=== PATIENT | female | born 1990 | race Native Hawaiian/Other Pacific Islander ===

== ENCOUNTER 2018-07-30 17:42 | Emergency (ER) | payer OTHER ==
[~2018-07-30] VITALS: Ht 160 cm; Wt 90.3 kg
[2018-07-30 18:46] LABS: PLATELET COUNT 217 K/uL (152-353)
[2018-07-30 18:56] LABS: POTASSIUM 3.8 mmol/L (3.6-5.2)
[2018-07-30 21:56] VITALS: BP 104/64; TEMP 98.9
== END 2018-07-30 21:57 | disposition home or self-care (01) ==
LOC: ED 17:42
PROVIDERS: Emergency Medicine
DX: R10.31 Right lower quadrant pain (principal); D72.829 Elevated white blood cell count, unspecified; K59.00 Constipation, unspecified
CPT/HCPCS: 36415; 74022; 80053; 81000; 81025; 85027; 96374; 99284; J1885

== ENCOUNTER 2019-09-17 15:13 | Emergency (ER) | payer OTHER ==
[~2019-09-17] VITALS: Ht 160 cm; Wt 90.3 kg
[2019-09-17 15:25] VITALS: TEMP 98.5
[2019-09-17 16:43] LABS: PLATELET COUNT 235 K/uL (152-353)
[2019-09-17 16:45] LABS: POTASSIUM 3.7 mmol/L (3.6-5.2)
[2019-09-17 18:55] VITALS: BP 130/68
== END 2019-09-17 18:55 | disposition home or self-care (01) ==
LOC: ED 15:13
PROVIDERS: Family Medicine
DX: S20.212A Contusion of left front wall of thorax, initial encounter (principal); S20.211A Contusion of right front wall of thorax, initial encounter; S29.012A Strain of muscle and tendon of back wall of thorax, initial encounter; S70.312A Abrasion, left thigh, initial encounter; S70.311A Abrasion, right thigh, initial encounter; V49.40XA Driver injured in collision with unspecified motor vehicles in traffic accident, initial encounter; Y92.89 Other specified places as the place of occurrence of the external cause
CPT/HCPCS: 80053; 81025; 85027; 99283; Q9963

== ENCOUNTER 2019-10-13 18:20 | Emergency (ER) | payer OTHER ==
[~2019-10-13] VITALS: Ht 160 cm; Wt 86.2 kg
[2019-10-13 19:45] VITALS: BP 128/77; TEMP 98.3
== END 2019-10-13 19:45 | disposition home or self-care (01) ==
LOC: ED 18:20
DX: G62.89 Other specified polyneuropathies (principal); M25.521 Pain in right elbow
CPT/HCPCS: 96372; 99283; J1885

== ENCOUNTER 2020-12-01 16:24 | Emergency (ER) | payer OTHER ==
[~2020-12-01] VITALS: Ht 165.1 cm; Wt 88.5 kg
[2020-12-01 20:06] VITALS: BP 145/85; TEMP 99.4
== END 2020-12-01 20:06 | disposition home or self-care (01) ==
LOC: ED 16:24
DX: J06.9 Acute upper respiratory infection, unspecified (principal); U07.1 COVID-19
CPT/HCPCS: 87635; 87651; 99283; U0003